=== PATIENT | female | born 1960 | race Caucasian/White ===

== ENCOUNTER → 2017-05-08 | Outpatient (CLI) | payer MEDICARE, MEDICAID | LOC: RAD 10:39 | PROVIDERS: ATTEND Family Medicine | DX: Z12.31 Encounter for screening mammogram for malignant neoplasm of breast (principal) | CPT/HCPCS: 77067 ==

== ENCOUNTER 2017-11-01 10:49 | Outpatient (RCR) | payer MEDICARE, MEDICAID | END 2017-11-01 16:10 | disposition home or self-care (01) | PROVIDERS: ATTEND Family Medicine | DX: M25.812 Other specified joint disorders, left shoulder (principal) ==

== ENCOUNTER → 2018-10-04 | Outpatient (CLI) | payer MEDICARE, MEDICAID ==
[2018-10-04 15:36] LABS: BASOPHILS % (AUTO) 0 % (0-10); EOSINOPHILS % (AUTO) 0 % (0-10); HEMATOCRIT 38 % (35-52); HEMOGLOBIN 13.1 G/DL (11.5-16.0); LYMPHOCYTES # (AUTO) 0.4 X 10^3 (1.0-4.0); LYMPHOCYTES % (AUTO) 6 % (12-44); MEAN CORPUSCULAR HEMOGLOBIN 30 PG (25-34); MEAN CORPUSCULAR HGB CONC 35 G/DL (32-36); MEAN CORPUSCULAR VOLUME 88 FL (80-99); MONOCYTES # (AUTO) 1.2 X 10^3 (0.0-1.0); MONOCYTES % (AUTO) 18 % (0-12); NEUTROPHILS # (AUTO) 5.1 X 10^3 (1.8-7.8); NEUTROPHILS % (AUTO) 76 % (42-75); PLATELET COUNT 179 10^3/uL (130-400); RED CELL DISTRIBUTION WIDTH 12.2 % (10.0-14.5); WHITE BLOOD COUNT 6.7 10^3/uL (4.3-11.0)
[2018-10-04 15:54] LABS: BAND NEUTROPHILS 5 %; BASOPHILS % (MANUAL) 0 %; EOSINOPHILS % (MANUAL) 0 %; LYMPHOCYTES % (MANUAL) 7 %; MONOCYTES % (MANUAL) 10 %; NEUTROPHILS % (MANUAL) 74 %; RBC MORPH NORMAL; REACTIVE LYMPHOCYTES 4 %
[2018-10-04 16:09] LABS: ALBUMIN 4.1 GM/DL (3.2-4.5); BILIRUBIN,TOTAL 0.3 MG/DL (0.1-1.0); CALCIUM 10.1 MG/DL (8.5-10.1); CREATININE SERUM 2.08 MG/DL (0.60-1.30); POTASSIUM 4.3 MMOL/L (3.6-5.0); TOTAL PROTEIN 7.5 GM/DL (6.4-8.2)
--- NOTE | 2018-10-04 17:16 | Diagnostic Imaging Report ---
INDICATION: Influenza, cough, and shortness of breath. TECHNIQUE: Two-view chest at 03:39 p.m. CORRELATION STUDY: None. FINDINGS: The heart size, mediastinal configuration and pulmonary vasculature are within normal limits. Limited depth of inspiration. Given this, lung hunter overall are clear. No definitive consolidating infiltrate. Degenerative changes with bridging osteophytes at multiple levels in the thoracic spine. IMPRESSION: 1. No radiographic evidence for acute abnormality of the chest. Dictated by: Dictated on workstation # [id number]
== END ==
LOC: LAB 15:16
PROVIDERS: ATTEND Family Medicine
DX: J11.1 Influenza due to unidentified influenza virus with other respiratory manifestations (principal); R05 Cough; R06.02 Shortness of breath; E86.0 Dehydration
CPT/HCPCS: 36415; 71046; 80053; 85007; 85027

== ENCOUNTER 2019-08-14 14:08 | Outpatient (CLI) | payer MEDICARE, MEDICAID ==
[~2019-08-14] VITALS: Ht 152 cm; Wt 54.6 kg
[2019-08-14 15:43] LABS: BASOPHILS % (AUTO) 0 % (0-10); EOSINOPHILS % (AUTO) 0 % (0-10); HEMATOCRIT 39 % (35-52); HEMOGLOBIN 12.9 G/DL (11.5-16.0); LYMPHOCYTES # (AUTO) 1.2 X 10^3 (1.0-4.0); LYMPHOCYTES % (AUTO) 19 % (12-44); MEAN CORPUSCULAR HEMOGLOBIN 30 PG (25-34); MEAN CORPUSCULAR HGB CONC 33 G/DL (32-36); MEAN CORPUSCULAR VOLUME 91 FL (80-99); MEAN PLATELET VOLUME 10.5 FL (7.4-10.4); MONOCYTES # (AUTO) 0.8 X 10^3 (0.0-1.0); MONOCYTES % (AUTO) 13 % (0-12); NEUTROPHILS # (AUTO) 4.5 X 10^3 (1.8-7.8); NEUTROPHILS % (AUTO) 69 % (42-75); PLATELET COUNT 257 10^3/uL (130-400); RED CELL DISTRIBUTION WIDTH 12.5 % (10.0-14.5); WHITE BLOOD COUNT 6.6 10^3/uL (4.3-11.0)
[2019-08-16] MEDS ORDERED: HYDR28.480 TP (11:39)
[2019-08-16] MEDS ORDERED: ASPI-586 PO (11:39)
[2019-08-16] MEDS ORDERED: TIMO1DRO4 OP (11:39)
[2019-08-16] MEDS ORDERED: ACET325C7 PO (11:39)
[2019-08-16] MEDS ORDERED: [UNRECOGNIZED DRUG - CODE] OP (11:39)
[2019-08-16] MEDS ORDERED: MAGN400O7 PO (11:39)
[2019-08-16] MEDS ORDERED: MONT10TA21 PO (11:39)
[2019-08-16] MEDS ORDERED: OLAN5TAB3 PO (11:39)
[2019-08-16] MEDS ORDERED: EUCA1LOZ28 MM (11:39)
[2019-08-16] MEDS ORDERED: LATA2.5D19 OP (11:39)
[2019-08-16] MEDS ORDERED: CALC500T7 PO (11:39)
[2019-08-16] MEDS ORDERED: SIMV10TA PO (11:39)
[2019-08-16] MEDS ORDERED: LOPE-175 PO (11:39)
[2019-08-16] MEDS ORDERED: LORA-404 PO (11:39)
[2019-08-16] MEDS ORDERED: LEVO50TA6 PO (11:39)
[2019-08-16] MEDS ORDERED: POLY17PO6 PO (11:39)
[2019-08-16] MEDS ORDERED: CETI10TA20 PO (11:39)
[2019-08-16] MEDS ORDERED: DIPH25CA79 PO (11:39)
[2019-08-16] MEDS ORDERED: NEOM28.33 TP (11:39)
[2019-08-16] MEDS ORDERED: LTH450TCR PO (11:39)
[2019-08-16] MEDS ORDERED: GUAI-997 PO (11:39)
[2019-08-16] MEDS ORDERED: MAG30ORA2 PO (11:39)
[2019-08-16] MEDS ORDERED: TETR15DR74 OP (11:39)
[2019-08-16] MEDS ORDERED: CHOL200025 PO (11:39)
[2019-08-16] MEDS ORDERED: FLUT9.9S NS (11:39)
[2019-08-16] MEDS ORDERED: MAGN400C PO (11:39)
[2019-08-16] MEDS ORDERED: LURA120T PO (11:39)
[2019-08-16] MEDS ORDERED: ZINC56.7 TP (11:39)
== END 2019-08-14 16:30 | disposition home or self-care (01) ==
LOC: PREOP 14:08
PROVIDERS: ATTEND Obstetrics & Gynecology
DX: Z01.812 Encounter for preprocedural laboratory examination (principal); C54.1 Malignant neoplasm of endometrium; D63.0 Anemia in neoplastic disease
CPT/HCPCS: 36415; 85025; 86850; 86900; 86901; 87081

== ENCOUNTER → 2019-09-12 | Outpatient (CLI) | payer MEDICARE, MEDICAID ==
[~2019-09-12] MED LIST: ACET325C7 PO; ASPI-586 PO; BARIUM SUSPENSION 2.1% (VANILLA SILQ) 450 ML PO ONE; CALC500T7 PO; CATHETER FLUSH 10 ML SYR IV PRN; CETI10TA20 PO; CHOL200025 PO; DIPH25CA79 PO; DOCU-143 PO; EUCA1LOZ28 MM; FLUT9.9S NS; GUAI-997 PO; HOLD METFORMIN - RECEIVED CONTRAST 20 ML VIAL IV SCH; HYDR28.480 TP; IBUP-1773 PO; IOHEXOL 350 MG/ML 100 ML (OMNIPAQUE 350) VIAL IV ONE; LATA2.5D19 OP; LEVO50TA6 PO; LOPE-175 PO; LORA-404 PO; LTH450TCR PO; LURA120T PO; MAG30ORA2 PO; MAGN400C PO; MAGN400O7 PO; MONT10TA21 PO; NEOM28.33 TP; NS 100 ML (IVPB) BAG IV ONE; OLAN5TAB3 PO; OXYC1TAB87 PO; POLY17PO6 PO; SIMV10TA PO; TETR15DR74 OP; TIMO1DRO4 OP; ZINC56.7 TP; [UNRECOGNIZED DRUG - CODE] OP
--- NOTE | 2019-09-12 11:05 | Diagnostic Imaging Report ---
PROCEDURE: CT chest with contrast, CT abdomen and pelvis with and without contrast. TECHNIQUE: Pre and post intravenous contrast axial imaging of the abdomen and pelvis and post contrast axial imaging of the chest were performed. Auto Exposure Controls were utilized during the CT exam to meet ALARA standards for radiation dose reduction. INDICATION: Endometrial carcinoma. COMPARISON: There are no prior studies available for comparison. By history the patient has had a recent hysterectomy. On this exam, the uterus is surgically absent. There is no sign of a mass in the pelvis to suggest malignancy. There is no free fluid collection evident either. The urinary bladder is grossly unremarkable. There are postsurgical changes involving the anterior abdominal wall. These may be related to the patient's recent surgical procedure. There are also surgical clips in the region of the appendix and the appendix may be surgically absent, as well. Correlation with the patient's surgical history would be recommended. The liver is homogeneous and not enlarged. The spleen, pancreas, adrenals, gallbladder, aorta and inferior vena cava show no sign of acute abnormality. There are a number of small renal calcifications bilaterally. The kidneys have somewhat of a lobulated contour and there are a few small cysts in both kidneys. There is no solid renal mass identified and the kidneys do not appear obstructed. The stomach is partially filled with fluid and consequently difficult to assess. The images through the thorax show that the heart size is within normal limits. The aorta is not abnormally dilated and is no sign of dissection. There is no defect within the pulmonary arteries to indicate a pulmonary embolus. There is no sign of failure, pneumonia or of pleural effusion. There is no mediastinal or hilar adenopathy. The thyroid gland is generally unremarkable. There is no obvious breast mass. The bone windows show no sign of a fracture or of a destructive lesion. IMPRESSION: 1. There are postoperative changes consistent with a recent hysterectomy. There is no pelvic mass or free fluid collection evident. 2 There is no sign of metastatic disease. 3. There are nonobstructive calculi involving both kidneys and there are a few benign-appearing cysts associated with each kidney. 4. There is no acute abnormality of the chest, abdomen or pelvis. Dictated by: Dictated on workstation # [id number]
== END ==
LOC: RAD 07:31
PROVIDERS: ATTEND Internal Medicine Hematology & Oncology
DX: C54.1 Malignant neoplasm of endometrium (principal); N20.0 Calculus of kidney; N28.1 Cyst of kidney, acquired; Z90.710 Acquired absence of both cervix and uterus; Z98.890 Other specified postprocedural states
CPT/HCPCS: 71260; 74178

== ENCOUNTER 2019-09-25 14:03 | Outpatient (RCR) | payer MEDICARE, MEDICAID ==
[2019-09-12 08:01] LABS: BASOPHILS % (AUTO) 0 % (0-10); EOSINOPHILS % (AUTO) 0 % (0-10); HEMATOCRIT 42 % (35-52); HEMOGLOBIN 13.6 G/DL (11.5-16.0); LYMPHOCYTES # (AUTO) 1.6 X 10^3 (1.0-4.0); LYMPHOCYTES % (AUTO) 21 % (12-44); MEAN CORPUSCULAR HEMOGLOBIN 30 PG (25-34); MEAN CORPUSCULAR HGB CONC 33 G/DL (32-36); MEAN CORPUSCULAR VOLUME 91 FL (80-99); MEAN PLATELET VOLUME 9.5 FL (7.4-10.4); MONOCYTES # (AUTO) 0.6 X 10^3 (0.0-1.0); MONOCYTES % (AUTO) 7 % (0-12); NEUTROPHILS # (AUTO) 5.4 X 10^3 (1.8-7.8); NEUTROPHILS % (AUTO) 72 % (42-75); PLATELET COUNT 353 10^3/uL (130-400); RED CELL DISTRIBUTION WIDTH 12.7 % (10.0-14.5); WHITE BLOOD COUNT 7.5 10^3/uL (4.3-11.0)
[2019-09-12 08:19] LABS: ALBUMIN 4.5 GM/DL (3.2-4.5); BILIRUBIN,TOTAL 0.4 MG/DL (0.1-1.0); CALCIUM 10.5 MG/DL (8.5-10.1); CREATININE SERUM 1.3 MG/DL (0.60-1.30); POTASSIUM 4.5 MMOL/L (3.6-5.0); TOTAL PROTEIN 7.7 GM/DL (6.4-8.2)
[~2019-09-25 14:03] MED LIST changes: -BARIUM SUSPENSION 2.1% (VANILLA SILQ) 450 ML PO ONE; -CATHETER FLUSH 10 ML SYR IV PRN; -CETI10TA20 PO; +CETI10TA21 PO; -HOLD METFORMIN - RECEIVED CONTRAST 20 ML VIAL IV SCH; -IOHEXOL 350 MG/ML 100 ML (OMNIPAQUE 350) VIAL IV ONE; -NS 100 ML (IVPB) BAG IV ONE
== END 2019-12-03 | disposition home or self-care (01) ==
LOC: ONC 14:03
PROVIDERS: ATTEND Internal Medicine Hematology & Oncology
DX: C54.1 Malignant neoplasm of endometrium (principal); E78.5 Hyperlipidemia, unspecified; E03.9 Hypothyroidism, unspecified; F32.9 Major depressive disorder, single episode, unspecified; F41.9 Anxiety disorder, unspecified; Z88.0 Allergy status to penicillin; Z88.8 Allergy status to other drugs, medicaments and biological substances; Z79.899 Other long term (current) drug therapy
CPT/HCPCS: 80053; 85025; 86304; 99213; 99214

== ENCOUNTER → 2022-02-11 | Outpatient (CLI) | payer MEDICARE, MEDICAID ==
[~2022-02-11] MED LIST changes: -CETI10TA21 PO; +CETI10TA49 PO; +GUAI-981 PO; -GUAI-997 PO; -ZINC56.7 TP; +ZINC56.715 TP
--- NOTE | 2022-02-11 12:23 | Diagnostic Imaging Report ---
Indication: Fall 2 days ago. Time of Exam: 10:47 AM Three views of the right hand demonstrate a fracture of the distal 5th metacarpal. There is mild volar angulation of the distal fracture fragment. Remaining metacarpals are intact. Phalanges are intact. Carpus is unremarkable. IMPRESSION: Mildly angulated distal 5th metacarpal fracture. Dictated by: Dictated on workstation # [id number]
== END ==
LOC: RAD 10:26
PROVIDERS: ATTEND Nurse Practitioner Family
DX: S62.307A Unspecified fracture of fifth metacarpal bone, left hand, initial encounter for closed fracture (principal); W19.XXXA Unspecified fall, initial encounter
CPT/HCPCS: 73130

== ENCOUNTER → 2023-02-21 | Outpatient (CLI) | payer MEDICARE, MEDICAID ==
[~2023-02-21] MED LIST changes: +HOLD METFORMIN - RECEIVED CONTRAST 20 ML VIAL IV SCH; +IOHEXOL 350 MG/ML 100 ML (OMNIPAQUE 350) VIAL IV ONE; +MONT-47 PO; -MONT10TA21 PO; +NS 100 ML (IVPB) BAG IV ONE; +SIMV-332 PO; -SIMV10TA PO
[2023-02-21 12:37] LABS: BASOPHILS % (AUTO) 0 % (0-10); EOSINOPHILS % (AUTO) 0 % (0-10); HEMATOCRIT 39 % (35-52); HEMOGLOBIN 13.1 g/dL (11.5-16.0); LYMPHOCYTES % (AUTO) 16 % (12-44); MEAN CORPUSCULAR HEMOGLOBIN 31 pg (25-34); MEAN CORPUSCULAR HGB CONC 34 g/dL (32-36); MEAN CORPUSCULAR VOLUME 92 fL (80-99); MEAN PLATELET VOLUME 10.4 fL (9.0-12.2); MONOCYTES # (AUTO) 0.5 10^3/uL (0.0-1.0); MONOCYTES % (AUTO) 8 % (0-12); NEUTROPHILS # (AUTO) 4.7 10^3/uL (1.8-7.8); NEUTROPHILS % (AUTO) 75 % (42-75); PLATELET COUNT 235 10^3/uL (130-400); WHITE BLOOD COUNT 6.3 10^3/uL (4.3-11.0)
[2023-02-21 12:57] LABS: ALBUMIN 4.5 GM/DL (3.2-4.5); BILIRUBIN,TOTAL 0.6 MG/DL (0.1-1.0); CALCIUM 10.4 MG/DL (8.5-10.1); CREATININE SERUM 1.46 MG/DL (0.60-1.30); ERYTHROCYTE SEDIMENTATION RATE 10 MM/HR (0-30); POTASSIUM 3.9 MMOL/L (3.6-5.0); TOTAL PROTEIN 7.2 GM/DL (6.4-8.2)
--- NOTE | 2023-02-21 14:17 | Diagnostic Imaging Report ---
PROCEDURE: CT abdomen and pelvis with contrast. TECHNIQUE: Multiple contiguous axial images were obtained through the abdomen and pelvis after administration of intravenous contrast. Auto Exposure Controls were utilized during the CT exam to meet ALARA standards for radiation dose reduction. All CT scans use one or more of the following dose optimizing techniques: Automated exposure control, MA and/or KvP adjustment based on patient size and exam type or iterative reconstruction. INDICATION: History of endometrial cancer, weight loss, history of hysterectomy and partial colectomy. COMPARISON: Exam is compared with studies of 09/12/2019. FINDINGS: Lung bases are clear. There is no liver mass. No radiodense gallstone or ductal dilatation. Spleen, adrenals, and pancreas are negative. There are a few renal cortical cysts as well as some likely chronic cortical atrophy. There is a nonobstructing right renal cortical calcification of 6 mm. No hydronephrosis. No ureteral stone. There are prior surgical changes near the ileocecal valve. This may be previous appendectomy. No appendiceal tissue identified. Some liquid stool in the cecum. The remaining colon has an elevated formed stool load through the level of the rectum. No focal impaction. No small bowel dilatation or aston obstruction. There is no omental infiltration. There is no abdominopelvic adenopathy. No pneumatosis. No free gas. Stomach is distended with ingested material. No perigastric edema. No mass effect at the gastric outlet. The duodenum is normal. Aortoiliac and mesenteric vessels are patent, nonaneurysmal, and nonacute. IMPRESSION: 1. No findings of metastatic disease. There is colonic constipation without focal impaction or obstruction. There is no lymphadenopathy. 2. Some chronic renal cysts, nonobstructing calcification, and some chronic cortical atrophy without hydronephrosis. 3. No ascites or omental infiltration. No focal or acute inflammatory process found. Dictated by: Dictated on workstation # [id number]
== END ==
LOC: RAD 12:16
PROVIDERS: ATTEND Family Medicine
DX: C54.1 Malignant neoplasm of endometrium (principal); K59.00 Constipation, unspecified; N28.1 Cyst of kidney, acquired; N26.1 Atrophy of kidney (terminal)
CPT/HCPCS: 36415; 74177; 80053; 84443; 85025; 85652; 86304